=== PATIENT | male | born 1955 | race Caucasian/White ===

== ENCOUNTER 2016-11-14 20:37 | Inpatient (IN) | payer MEDICARE ==
[~2016-11-14] VITALS: Ht 167.6 cm; Wt 115.8 kg
--- NOTE | ~2016-11-14 | CON ---
PATIENT'S NAME: AGUSTIN ROWLEY [facility] AGE: 61 Y [address] ROOM: [id number] [place], [place] [address] LOCATION: GPCU ADMIT DATE: 11/16/2016 Consultation DISCHARGE DATE: 11/18/2016 FAMILY PHYSICIAN: Herbert Bueno MD ATTENDING PHYSICIAN: Emma Silverman CORRECTED PER DR. LOU / 11-19-2016 / KLD DATE OF CONSULTATION: 11/14/2016 REFERRING PHYSICIAN: Иван Lou MD CHIEF COMPLAINT: Left ankle fracture. HISTORY OF PRESENT ILLNESS: Mr. Rowley is a 61-year-old male, who had several beers earlier in the evening and sustained a fall down several stairs and injured his ankle. He was brought to the emergency room. He had no significant bleeding from his ankle. No numbness or tingling in his foot. Pain with any movement. Pain was relieved by rest and narcotic pain medications. It had been approximately 2 hours since he had eaten something and had been having what he reports about 8 beers. No history of injuries to the ankle, but he does have a history of a prior femur fracture as a younger man, treated nonoperatively. PAST MEDICAL HISTORY: Stroke and diabetes on insulin with hemoglobin A1c between 7 and 8. PAST SURGICAL HISTORY: Multiple shunts and plate placed in his skull. FAMILY HISTORY: Negative for bleeding or anesthesia complications. ALLERGIES: NONE. CURRENT MEDICATIONS: The patient is on insulin and multiple other medications reviewed in the chart. REVIEW OF SYSTEMS: Negative except as above. PHYSICAL EXAMINATION: GENERAL: He is in no acute distress, resting in bed. NEUROLOGIC: He is awake and alert, slightly slowed with discussion. CARDIOVASCULAR: Well-perfused distal extremities. PATIENT'S NAME: AGUSTIN ROWLEY [facility] AGE: 61 Y [address] ROOM: [id number] [place], [place] [address] LOCATION: GPCU ADMIT DATE: 11/16/2016 Consultation DISCHARGE DATE: 11/18/2016 FAMILY PHYSICIAN: Herbert Bueno MD ATTENDING PHYSICIAN: Emma Silverman RESPIRATORY: Nonlabored respirations. PSYCHIATRIC: Appropriate mood and affect. EXTREMITIES: Left lower extremity sensation is intact to light touch over the sural, saphenous, superficial peroneal, deep peroneal, and tibial nerve distributions. Capillary refill is brisk. He has warm and well perfused foot and palpable dorsal pedis pulses. Skin is intact throughout his ankle. He has moderate swelling at his ankle and tenderness throughout his ankle. No other tenderness throughout the left lower extremity. There is laxity at his ankle with significant pain. He has decreased ankle range of motion secondary to pain with EHL and FHL fired. Evaluation of the contralateral right lower extremity reveals full ankle range of motion, palpable dorsalis pedis pulses, and normal sensation for comparison to contralateral. IMAGING: X-ray of the left ankle, 3 reviews, shows a trimalleolar ankle fracture, subluxation with posterior and lateral displacement of the talus under the tibia. DIAGNOSIS: Closed left ankle trimalleolar fracture, subluxation. PLAN: Given the ankles position and talus being largely subluxated from under the distal tibia, I recommended intervention for him in the emergency department for closed reduction under conscious sedation. Please see separate note for details. He did get splinted. The nurse and I discussed with him the potential risks of conscious sedation instead of general anesthetic given his p.o. intake and he elected to proceed and his with conscious sedation understanding these risks. He did have an episode of vomiting during the procedure and was admitted postoperatively to monitor his breathing as well as concerned about his ambulation at home. He will require a surgery for further stabilization of his ankle and obtain a CT scan after the reduction was complete. I plan to see him back in the office within a week for further planning for his treatment. ИВАН LOU MD PN/modl /[id number] PATIENT'S NAME: AGUSTIN ROWLEY [facility] AGE: 61 Y [address] ROOM: [id number] [place], [place] [address] LOCATION: GPCU ADMIT DATE: 11/16/2016 Consultation DISCHARGE DATE: 11/18/2016 FAMILY PHYSICIAN: Herbert Bueno MD ATTENDING PHYSICIAN: Emma Silverman CORRECTED PER DR. LOU 11-19-2016 / KLD d: 11/15/16 1904 t: 11/25/16 1449, CONSULTATION REPORT
--- NOTE | ~2016-11-14 | HP ---
PATIENT'S NAME: AGUSTIN ROWLEY [facility] AGE: 61 Y [address] ROOM: [id number] [place], [place] [address] LOCATION: GPCU ADMIT DATE: 11/15/2016 History & Physical DISCHARGE DATE: FAMILY PHYSICIAN: RICARDO PAT MD ATTENDING PHYSICIAN: ANTOINETTE COVINGTON DATE OF SERVICE: CHIEF COMPLAINT: Left ankle fracture. HISTORY OF PRESENT ILLNESS: This is a 61-year-old gentleman with a past medical history of chronic respiratory failure secondary to obesity hypoventilation syndrome, history of stroke, as well as insulin-dependent diabetes mellitus; was at home climbing stairs downward when he twisted his left ankle and had sudden onset of pain and had a fall, did not hit his head and did not lose any consciousness. In the emergency department, he received conscious sedation and closed reduction by the Orthopedic Department. Postprocedurally, he developed low oxygen saturations requiring 4 to 5 L of oxygen to maintain saturations. I was contacted by the ER physician to admit this patient for observation. On my encounter, he stated that he is not feeling any short of breath. He does not have any dizziness, does not have any headache, does not have any cough or sputum production, does not have any abdominal pain. Does complain of little left ankle pain. No constipation or diarrhea reported. REVIEW OF SYSTEMS: All other systems were reviewed and were negative except what is mentioned in the HPI. ALLERGIES: NO KNOWN DRUG ALLERGIES. PAST MEDICAL HISTORY: Insulin-dependent diabetes mellitus, chronic respiratory failure requiring BiPAP at nighttime secondary to obesity hypoventilation syndrome, history of stroke, hyperlipidemia. MEDICATIONS: Medications are being reconciled right now. SOCIAL HISTORY: Quit smoking 20 years ago. No alcohol or drug abuse. FAMILY HISTORY: PATIENT'S NAME: AGUSTIN ROWLEY [facility] AGE: 61 Y [address] ROOM: [id number] [place], [place] [address] LOCATION: GPCU ADMIT DATE: 11/15/2016 History & Physical DISCHARGE DATE: FAMILY PHYSICIAN: RICARDO PAT MD ATTENDING PHYSICIAN: ANTOINETTE COVINGTON Negative for any history of premature coronary artery disease. PHYSICAL EXAMINATION: VITAL SIGNS: Vitals were stable except for oxygen saturation which was 95% on 4 to 5 L of oxygen. GENERAL: No acute distress. Alert and oriented x3. HEENT: Head; atraumatic, normocephalic. Eyes; nonicteric, no pallor. Oropharynx, moist mucous membranes. CARDIOVASCULAR: S1 and S2. No murmurs, gallops, or rubs. LUNGS: Bilateral equal air entry. No crackles appreciated. ABDOMEN: Obese, soft, nontender, nondistended. Bowel sounds present. EXTREMITIES: No clubbing, cyanosis, or edema. MUSCULOSKELETAL: Left ankle surgically draped. SKIN: No dryness or blemishes noted. ASSESSMENT: 1. Mlmai-ie-fonykty hypoxic respiratory failure, postprocedurally. 2. Insulin-dependent diabetes mellitus. 3. Obesity, morbid. 4. History of cerebrovascular accident. PLAN: We are going to admit this patient for observation. We will repeat the chest x-ray. I gave him a reduced dose of his insulin. Monitor his respiratory status in the morning and make decision regarding discharge. MD ABIGAIL KRUGER/yuko /[id number] D: [id number] T: [id number] HISTORY & PHYSICAL
--- NOTE | ~2016-11-14 | ER ---
PATIENT'S NAME: AGUSTIN ROWLEY [facility] AGE: 61 Y [address] ROOM: [place] [id number] LOCATION: GPCU ADMIT DATE: 11/15/2016 ER/Outpatient Report DISCHARGE DATE: FAMILY PHYSICIAN: RICARDO PAT MD ATTENDING PHYSICIAN: ANTOINETTE COVINGTON Admission date and time documented in medical record. I saw the patient at 2055 hours. CHIEF COMPLAINT: Fall down a flight of stairs, left ankle injury. HISTORY OF PRESENT ILLNESS: This patient is a 61-year-old male, who fell down a flight of stairs at his home. This happened just prior to admission in the emergency room. The patient was brought in by paramedics via ambulance for evaluation. He has left ankle injury. His left ankle is in an air cast. The patient denied hitting his head or losing consciousness. The patient denies any neck pain, spine pain, chest pain, abdominal pain. No shortness of breath. No nausea, vomiting, or diarrhea. No incontinence of stool or urine. No lightheadedness or dizziness. No headache, eyes, ears, nose, throat, neck, or spine pain. No recent coughs, colds, flus, fever, chills, or sweats. No other extremity injuries other than the left ankle. He has had previous problems with his left knee. No skin eruptions or rash. Does have an abrasion to the malleolar area of the left ankle but no open area. Does have a history of a hemorrhagic CVA. Had a decompression craniotomy and bone patch. He had a DRIER TENDER shunt placed. No endocrine problems. Does have a history of anxiety/depression. HOME MEDICATIONS: See attached medication list. ALLERGIES: NONE. SOCIAL HISTORY: Nonsmoker. Does drink alcohol. SIGNIFICANT PAST MEDICAL HISTORY: Hemorrhagic cerebrovascular accident, gastroesophageal reflux, benign prostatic hypertrophy, anxiety/depression, remote tobacco abuse, alcohol abuse, hydrocephalus, dyslipidemia. OPERATIONS: Decompressive craniotomy, Vinson filter placement, bone patch, DRIER TENDER shunt placement, colonoscopy. PATIENT'S NAME: AGUSTIN ROWLEY [facility] AGE: 61 Y [address] ROOM: [address] [address] LOCATION: GPCU ADMIT DATE: 11/15/2016 ER/Outpatient Report DISCHARGE DATE: FAMILY PHYSICIAN: RICARDO PAT MD ATTENDING PHYSICIAN: ANTOINETTE COVINGTON A REVIEW OF SYSTEMS: All systems reviewed by me are negative with exception of those discussed in the history of present illness. PHYSICAL EXAMINATION: VITAL SIGNS: Temperature 97.6 tympanic, pulse 83, respirations 20, blood pressure 142/69, O2 saturation on room air is 90%. HEAD: Normocephalic. EYES: Extraocular muscles intact. PERRL. Sclerae and conjunctivae clear, nonicteric. Ears, clear TMs bilaterally. NOSE: Clear. THROAT: Clear. Mucous membranes moist. Teeth, jaw intact. NECK: Range of motion full. No nuchal rigidity. No thyromegaly or cervical adenopathy. No tenderness. SPINE: Nontender. No deformity. No step-off. LUNGS: Clear. Good air flow. No rales, rhonchi, or wheezes. HEART: Regular. Pulses are palpable. No rib cage pain. No chest pain to palpation. ABDOMEN: Obese soft, nondistended, nontender. Good bowel tones. No organomegaly or abnormal mass palpable. No CVA tenderness. PELVIS: Stable and nontender. EXTREMITIES: Moves all 4 extremities other than left ankle. The patient is in an air cast to the left lower leg. Air cast was deflated. He does have an abrasion to the malleolus but no open wounds. NEUROLOGIC: Cranial nerves intact. No lateralized sign. The patient is awake, cooperative. Motor and sensory intact. The patient does have alcohol on board. Vascular appears to be intact. SKIN: Clear, abrasion to the left ankle, but no open wounds other than that. LABORATORY DATA AND X-RAYS: Chest x-ray showed no acute infiltrate or changes. X-ray of the left ankle showed a trimalleolar fracture with some displacement. We will review all plain films with the radiologist and orthopedic surgeon. IMPRESSION: 1. Fall down a flight of stairs with trimalleolar fracture of the left ankle. 2. Alcohol abuse with possible acute intoxication. 3. History of hemorrhagic cerebrovascular accident with hydrocephalus. He had a decompression craniotomy and DRIER TENDER shunt placement. 4. History of gastroesophageal reflux. 5. Benign prostatic hypertrophy. 6. History of anxiety/depression. 7. History of remote tobacco abuse. PATIENT'S NAME: AGUSTIN ROWLEY [facility] AGE: 61 Y [address] ROOM: [address] [address] [facility] ADMIT DATE: 11/15/2016 ER/Outpatient Report DISCHARGE DATE: FAMILY PHYSICIAN: RICARDO PAT MD ATTENDING PHYSICIAN: ANTOINETTE COVINGTON 8. Dyslipidemia. PLAN: I did discuss this patient with Dr. Watson, orthopedic surgeon. Dr. Watson is going to come into the emergency room to evaluate the patient. We will proceed on his recommendations. Discussion ensued with the patient regarding my findings and recommendations, he understands. MD JAMIL BALDWIN/yuko /[id number] d: 11/15/16 0121 t: 11/15/16 1810, OUTPATIENT REPORT
--- NOTE | ~2016-11-14 | DS ---
PATIENT'S NAME: AGUSTIN ROWLEY [facility] AGE: 61 Y [address] ROOM: [address] [address] LOCATION: GPCU ADMIT DATE: 11/16/2016 Discharge Summary DISCHARGE DATE: 11/18/2016 FAMILY PHYSICIAN: Herbert Bueno MD ATTENDING PHYSICIAN: Emma Silverman FINAL DIAGNOSES: 1. Chronic hypoxic respiratory failure secondary to obstructive sleep apnea. 2. Left ankle fracture dislocation. 3. Diabetes mellitus type 2. 4. Dyslipidemia. 5. Drug-induced constipation. Please see the history and physical dictated by Dr. Silverman for details of admission. In short, the patient had presented to the emergency room after a fall, in which he had suffered a fracture of his left ankle and was subsequently seen in the ER by Dr. Watson and underwent reduction. He postprocedure required oxygen in the 4 to 5 L range which was new for him. LABORATORY DATA: An on the second hospital day, sodium 139, potassium 4, chloride 103, CO2 of 28, BUN 14, creatinine 1.3. His proBNP was less than 30, magnesium 2.4. At discharge, all laboratory remained stable. His creatinine was down to 1.2. Hemoglobin A1c on admission was 7.4, white blood cell count on admission was 10.8, hemoglobin 13.8, hematocrit 42.2, and platelet count 217. RADIOLOGY DATA: Chest x-ray on admission did not show any acute changes. There were no vascular congestion. PE protocol. CT scan of the chest was done, it was negative for pulmonary embolism but they recalled nonspecific ground-glass lung densities, was question whether this is an early low-grade infection versus mild inflammation. HOSPITAL COURSE: The patient was admitted to PCU from the emergency room with a diagnosis of acute hypoxic respiratory failure. He was on supplemental oxygen. He was put on sliding scale insulin to control his blood sugars. He was placed on Lovenox for DVT prophylaxis. PT and OT were asked to see the patient. He was given an incentive spirometer. Procalcitonin and CBC were checked and evaluated for possible pneumonia. These returned without any indication of pneumonia. On the second hospital day, he still had significant oxygen requirements. At that time, he was taken off the opioid narcotics as a concern of respiratory depression and started on Nucynta. Also, a spiral cut CT scan was obtained to rule out a pulmonary embolism. The CT scan returned negative but did show a nonspecific ground-glass pattern which was either inflammation or low-grade infection. On the morning of the , he continued to have significant oxygen requirements. At that time, he also complained of a mild cough productive of white sputum. The decision was made to place him PATIENT'S NAME: AGUSTIN ROWLEY [facility] AGE: 61 Y [address] ROOM: [id number] [place], [place] [address] LOCATION: GPCU ADMIT DATE: 11/16/2016 Discharge Summary DISCHARGE DATE: 11/18/2016 FAMILY PHYSICIAN: Herbert Bueno MD ATTENDING PHYSICIAN: Emma Silverman on IV Levaquin and give him a dose of Solu-Medrol. He was encouraged to use the incentive spirometer, was also given a flutter valve. His pain was well controlled with the Nucynta. He did have constipation, and so, he was started on medications for this. On the morning of the , the patient had been weaned off the oxygen. He was feeling much better. It was felt that he was stable for discharge. Of note, during the hospital stay, the patient had significant diuresis based upon the I's and O's on the nursing database. DISCHARGE INSTRUCTIONS: He is discharged to home. He is to see Dr. Herbert Kendall, his PCP in 3 to 5 days. He is to see Dr. Watson at [facility] in 2 to 6 days. He was advised to eat yogurt daily or use Align probiotic while on the Levaquin. DISCHARGE MEDICATIONS: Included, 1. Metformin a 1000 mg twice daily. 2. Atorvastatin 80 mg daily. 3. Omeprazole 20 mg daily. 4. Lisinopril 20 mg daily. 5. Celexa 20 mg daily. 6. Diabetic vitamin 2 capsules daily. 7. Vitamin D 1000 units daily. 8. Toujeo 30 units subcu every evening. 9. Bydureon pen 2 mg subcu every. He is to continue his BiPAP at home. 10. MiraLAX 17 g twice daily. 11. Nucynta 50 mg every 3 hours as needed for pain. He was given 40 pills. 12. Levaquin 750 mg 1 pill daily for 3 days. MELANIE MCCULLOUGH MD LAW/modl /[id number] CC: MD Иван Reddy MD d: 11/19/16 1619 t: 11/20/161948, DISCHARGE SUMMARY
--- NOTE | ~2016-11-14 | OR ---
PATIENT'S NAME: AGUSTIN ROWLEY [facility] AGE: 61 Y [address] ROOM: [address] [place], [place] [address] LOCATION: GPCU ADMIT DATE: 11/16/2016 OR/Procedure Report DISCHARGE DATE: FAMILY PHYSICIAN: RICARDO PAT MD ATTENDING PHYSICIAN: ANTOINETTE COVINGTON SURGEON: Иван Watson MD PREPPER: None. DATE OF PROCEDURE: 11/14/2016 PREOPERATIVE DIAGNOSIS: Left ankle trimalleolar fracture dislocation, closed. POSTOPERATIVE DIAGNOSIS: Left ankle trimalleolar fracture dislocation, closed. PROCEDURE PERFORMED: Left ankle closed reduction of trimalleolar ankle fracture with subluxation. ANESTHESIA: MAC anesthetic sedation. ESTIMATED BLOOD LOSS: None. IMPLANTS: None. SPECIMENS: None. INDICATIONS: Mr. Rowley is a 61-year-old male who sustained a left ankle trimalleolar fracture subluxation with posterior lateral displacement of his talus, this was closed. The risks, benefits, and alternatives of closed reduction were discussed with him at length and his , including the possibility of proceeding in the operating room for general anesthetic given that he had about 8 beers couple of hours prior to the entry. All of their questions were answered and he did understand the likely need for further surgical intervention in the future. They gave informed consent in written and verbal forms. DESCRIPTION OF PROCEDURE: The patient underwent sedation. The left ankle then underwent a manipulation and fluoroscopy confirmed appropriate reduction on AP and lateral fluoroscopy. At this point, the patient vomited and the anesthesia provider began suction and he did have some respiratory depression. The ankle was then manipulated to provide sensory stimulus to the patient, and the patient's respiratory status and respiratory drive improved. Fluoroscopy again confirmed appropriate reduction. PATIENT'S NAME: AGUSTIN ROWLEY [facility] AGE: 61 Y [address] ROOM: [address] [place], [place] [address] LOCATION: GPCU ADMIT DATE: 11/16/2016 OR/Procedure Report DISCHARGE DATE: FAMILY PHYSICIAN: RICARDO PAT MD ATTENDING PHYSICIAN: ANTOINETTE COVINGTON A well padded and well molded short-leg splint was then applied. Fluoroscopy again confirmed appropriate reduction on AP and lateral and oblique fluoroscopy. The patient was then awoken from his sedation and left with the splint in place. POSTPROCEDURE CONDITION: Stable. DISPOSITION: The initial plan was for the patient to be discharged home, however, secondary to some concerns about his respiratory status with the emesis during the case, the decision was made to admit him overnight for observation. He will need to follow up in clinic with me within 1 week for planning for left ankle open reduction and internal fixation surgery if needed. MD URSULA DAVID/modl /[id number] d: 11/15/161915 t: 11/25/16 1452, OPERATIVE SUMMARY
[2016-11-15] MEDS ORDERED: GLUCOPHAGE1000 MG PO (02:46)
[2016-11-15] MEDS ORDERED: LIPITOR80 MG PO (02:48)
[2016-11-15] MEDS ORDERED: PRILOSEC20 MG PO (02:49)
[2016-11-15] MEDS ORDERED: PRINIVIL (ZESTR20 MG PO (02:49)
[2016-11-15] MEDS ORDERED: CELEXA20 MG PO (02:49)
[2016-11-15] MEDS ORDERED: DIABETIC VITAM1 EACH PO (02:50)
[2016-11-15] MEDS ORDERED: VITAMIN D1000 UNIT PO (02:51)
[2016-11-15] MEDS ORDERED: TOUJEO SOL300 UNIT/1 SUB-Q (02:51)
[2016-11-15] MEDS ORDERED: BYDUREON P2 MG/0.65 SUB-Q (02:52)
[2016-11-15] MEDS ORDERED: BIPAP INH (02:58)
[2016-11-15 12:43] LABS: BASOPHIL % 0.3 %; EOSINOPHIL # 0.1 K/uL (0.0-0.5); EOSINOPHIL % 0.6 %; HEMATOCRIT 42.2 % (37.0-53.0); HEMOGLOBIN 13.8 g/dL (11.0-16.0); IMMATURE GRANULOCYTE % 0.4 %; LYMPHOCYTE # 0.8 K/uL (0.8-4.0); LYMPHOCYTE % 7.1 %; MCH 31.2 pg (27.0-34.0); MCHC 32.7 gm/dL (32.0-36.5); MCV 95.3 fl (83.0-98.0); MONOCYTE # 0.4 K/uL (0.0-1.0); MONOCYTE % 4.1 %; MPV 11.3 fl (9.4-12.4); NEUTROPHIL # (ANC) 9.4 K/uL (1.4-9.0); NEUTROPHIL % 87.5 %; NRBC % 0 /100WBC (0-0.00); PLATELET COUNT 217 K/uL (150-450); RBC 4.43 M/uL (3.50-5.50); WBC 10.8 K/uL (4.0-11.0)
[2016-11-16 10:23] LABS: ALBUMIN 3.3 gm/dL (3.5-5.0); BLOOD UREA NITROGEN 14 mg/dL (6-24); CALCIUM 8.7 mg/dL (8.5-10.5); CHLORIDE 103 mMol/L (96-110); CO2 28 mMol/L (22-32); CREATININE 1.3 mg/dL (0.6-1.3); MAGNESIUM 2.4 mg/dL (1.8-2.6); PHOSPHORUS 2.2 mg/dL (2.5-4.9); SODIUM 139 mMol/L (135-145)
[2016-11-18 06:53] LABS: HEMATOCRIT 42.8 % (37.0-53.0); MCHC 32.7 gm/dL (32.0-36.5); MCV 94.7 fl (83.0-98.0); MPV 10.5 fl (9.4-12.4); PLATELET COUNT 249 K/uL (150-450); RBC 4.52 M/uL (3.50-5.50); RDW-CV 14.6 % (11.9-14.6); WBC 7.8 K/uL (4.0-11.0)
[2016-11-18 07:26] LABS: ALBUMIN 3.4 gm/dL (3.5-5.0); CALCIUM 9.1 mg/dL (8.5-10.5); CREATININE 1.2 mg/dL (0.6-1.3); PHOSPHORUS 4.6 mg/dL (2.5-4.9)
[2016-11-18 07:28] LABS: ANION GAP 9.2 (10.0-19.0); MAGNESIUM 2.5 mg/dL (1.8-2.6); POTASSIUM 4.2 mMol/L (3.7-5.1)
[2016-11-18 07:32] LABS: ABSOLUTE NEUTROPHIL CT (ANC) 4.5 K/uL (1.4-9.0); BANDED NEUTROPHIL # 0.2 K/uL (0.0-0.1); BANDED NEUTROPHILS % 2 %; LYMPHOCYTE % 38 %; MONOCYTE # 0.3 K/uL (0.0-1.0); SEGMENTED NEUTROPHIL # 4.3 K/uL (1.4-9.0); SEGMENTED NEUTROPHIL % 55 %
[2016-11-18] MEDS ORDERED: MIRALAX17 GM PO (12:20)
[2016-11-18] MEDS ORDERED: NUCYNTA50 MG PO (12:24)
[2016-11-18] MEDS ORDERED: LEVAQUIN750 MG PO (12:25)
== END 2016-11-18 13:00 | disposition home health service (06) | DRG 562 ==
LOC: GACC 20:37 → GPCU 11-15 00:26
PROVIDERS: Family Medicine; Internal Medicine; ADMIT Internal Medicine
PROC: 0QSKXZZ Reposition Left Fibula, External Approach (ICD-10-PCS; principal; 2016-11-14)
PROC: 0QSHXZZ Reposition Left Tibia, External Approach (ICD-10-PCS; 2016-11-14)
PROC: 0QSHXZZ Reposition Left Tibia, External Approach (ICD-10-PCS; 2016-11-14)
DX: S82.852A Displaced trimalleolar fracture of left lower leg, initial encounter for closed fracture (principal); J96.21 Acute and chronic respiratory failure with hypoxia; E66.2 Morbid (severe) obesity with alveolar hypoventilation; Z68.41 Body mass index [BMI] 40.0-44.9, adult; E78.5 Hyperlipidemia, unspecified; Z86.73 Personal history of transient ischemic attack (TIA), and cerebral infarction without residual deficits; E11.9 Type 2 diabetes mellitus without complications; Z79.4 Long term (current) use of insulin; W10.8XXA Fall (on) (from) other stairs and steps, initial encounter; Z87.891 Personal history of nicotine dependence; K59.03 Drug induced constipation
CPT/HCPCS: G0378; J1650; J1956; J2270; J2920; J7030; J7050; Q9967

== ENCOUNTER → 2016-11-14 | Outpatient (CLI) | payer MEDICARE ==
[~2016-11-14] MED LIST: BIPAP INH; BYDUREON P2 MG/0.65 SUB-Q; CELEXA20 MG PO; DIABETIC VITAM1 EACH PO; GLUCOPHAGE1000 MG PO; LEVAQUIN750 MG PO; LIPITOR80 MG PO; MIRALAX17 GM PO; NUCYNTA50 MG PO; PRILOSEC20 MG PO; PRINIVIL (ZESTR20 MG PO; TOUJEO SOL300 UNIT/1 SUB-Q; VITAMIN D1000 UNIT PO
== END | disposition disaster alternative care site (69) ==
LOC: GAMB 20:05
DX: S99.912A Unspecified injury of left ankle, initial encounter (principal); M25.572 Pain in left ankle and joints of left foot; M79.662 Pain in left lower leg; W10.9XXA Fall (on) (from) unspecified stairs and steps, initial encounter
CPT/HCPCS: J3010